=== PATIENT | female | born 1950 | race American Indian/Alaskan Native ===

== ENCOUNTER 2021-10-03 11:42 | Emergency (ER) | payer MEDICARE ==
[2021-10-03] MEDS ORDERED: SODIUM CHLORIDE 0.9% 1000 ML 1,000 ML IV ONE (12:38)
[2021-10-03] MEDS ORDERED: ONDANSETRON 4 MG/2 ML INJ IV ONE (12:38)
[2021-10-03] MEDS ORDERED: MORPHINE 4 MG/1 ML INJ IV ONE (12:38)
[2021-10-03 14:52] LABS: Basophils % (Auto) 0.3 % (0.0-1.8); Eosinophils % (Auto) 0.5 % (0.0-4.3); Hemoglobin 8.2 gm/dl (10.1-14.3); Lymphocytes # (Auto) 0.7 K/mm3 (1.2-5.4); Lymphocytes % (Auto) 7.5 % (13.4-35.0); Mean Corpuscular HGB Conc 34 % (30-34); Mean Corpuscular Volume 83 fl (79-97); Monocytes # (Auto) 0.9 K/mm3 (0.0-0.8); Monocytes % (Auto) 8.9 % (0.0-7.3); Platelet Count 291 K/mm3 (140-440); Red Blood Count 2.87 M/mm3 (3.65-5.03); Red Cell Distribution Width 18.5 % (13.2-15.2)
[2021-10-03 14:59] LABS: Alanine Aminotransferase 6 units/L (7-56); Albumin 2.9 g/dL (3.9-5); Blood Urea Nitrogen 33 mg/dL (7-17); Calcium 8.9 mg/dL (8.4-10.2); Hemolysis Index 5
[2021-10-03 15:24] LABS: BUN/Creatinine Ratio 5; Bilirubin,Direct < 0.2 mg/dL (0-0.2)
[2021-10-03 15:33] VITALS: BP 92/61
--- NOTE | 2021-10-03 19:34 | Cat Scan Report ---
CT ABDOMEN AND PELVIS WITHOUT CONTRAST INDICATION / CLINICAL INFORMATION: Abdominal pain. TECHNIQUE: Axial CT images were obtained through the abdomen and pelvis without IV contrast. All CT scans at this location are performed using CT dose reduction for ALARA by means of automated exposure control. COMPARISON: None available. FINDINGS: LOWER CHEST: There is a left pleural effusion. There is airspace consolidation in the left lung base. LIVER: No focal abnormality is seen. GALLBLADDER: Cholecystectomy. BILE DUCTS: No significant abnormality. PANCREAS: No discrete abnormality is identified. Surgical clips are noted in the left upper quadrant near the pancreatic tail. SPLEEN: No significant abnormality. ADRENALS: Not well seen on this study. RIGHT KIDNEY / URETER: The right kidney is atrophic. There are small hypodensities likely representin g cysts. 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 LEFT KIDNEY / URETER: The left kidney is atrophic. There is a large cyst in the upper pole. Atheroscl erotic calcifications are noted in both renal arteries. STOMACH / SMALL BOWEL: There is mild distention of small bowel loops in the midabdomen are predominan tly air-filled. These are nonspecific. COLON: No acute abnormality APPENDIX: Not visualized. PERITONEUM: There is a large amount of ascites. No free air. No fluid collection. There are some ques tionable soft tissue densities along the anterior peritoneum cannot determine if these are loops of b owel with the this could represent carcinomatosis. LYMPH NODES: No significant adenopathy. AORTA / ARTERIES: Severe atherosclerotic calcification without acute abnormality. IVC / VEINS: No significant abnormality. URINARY BLADDER: No significant abnormality. REPRODUCTIVE ORGANS: Uterus is absent. There are multiple surgical clips in the pelvis. ADDITIONAL FINDINGS: None. SKELETAL SYSTEM: There are multiple sclerotic foci noted in the imaged skeleton suspicious for metast asis. IMPRESSION: 1. There is a large amount of ascites. The source is not definitively identified. There are questiona ble soft tissue densities along the anterior peritoneal surface possibly representing carcinomatosis. This is not well-defined or definitive on this study. 2. There is atherosclerotic disease. 3. The kidneys are atrophic. There is a right renal artery aneurysm. 4. There is some distention of small bowel loops in the midabdomen specific. 5. There is a left pleural effusion. There is airspace consolidation in the left lung base. 6. There are multiple small sclerotic foci noted in the imaged skeleton suspicious for metastases. Signer Name: Ramirez Acevedo MD Signed: 10/03/2021 7:30 PM Workstation Name: [id number]
--- NOTE | 2021-10-03 20:08 | Emergency Department Report ---
ED Abdominal Pain HPI - General Chief Complaint: Abdominal Pain Stated Complaint: ABD PAIN Time Seen by Provider: 10/03/21 12:37 Source: patient, EMS Mode of arrival: Stretcher Limitations: No Limitations - History of Present Illness Initial Comments: Patient is a 70-year-old female with history of breast cancer and chronic kidney disease brought in from dialysis appointment with complaint of abdominal pain for the past week. She reports few episodes of nausea and vomiting. Denies any fever or chills. Reports history of diverticulitis which she thinks is the cause of her pain currently. Denies fever or chills. No modifying factors. Severity scale (0 -10): 4 - Related Data Previous Rx's Medication Instructions Recorded Last Taken Type HYDROcodone/APAP 5-325 [[place] 1 each PO Q6HR PRN #12 tablet 10/03/21 Unknown Rx 5/325] Allergies Allergy/AdvReac Type Severity Reaction Status Date / Time No Known Allergies Allergy Verified 10/03/21 11:51 ED Review of Systems ROS: Stated complaint: ABD PAIN Other details as noted in HPI Constitutional: denies: chills, fever Respiratory: denies: cough, shortness of breath, wheezing Cardiovascular: denies: chest pain, palpitations Gastrointestinal: abdominal pain, nausea, vomiting Genitourinary: denies: urgency, dysuria, discharge Skin: denies: rash, lesions Neurological: denies: headache, weakness, paresthesias Psychiatric: denies: anxiety, depression ED Past Medical Hx - Past Medical History Hx Hypertension: Yes Hx Renal Disease: Yes Hx of Cancer: Yes - Surgical History Past Surgical History?: Yes Additional Surgical History: masectomy 2013 - Social History Smoking Status: Never Smoker Substance Use Type: None - Medications Home Medications: Home Medications Medication Instructions Recorded Confirmed Last Taken Type HYDROcodone/APAP 5-325 [[place] 1 each PO Q6HR PRN #12 tablet 10/03/21 Unknown Rx 5/325] ED Physical Exam - General Limitations: No Limitations General appearance: alert, in no apparent distress - Head Head exam: Present: atraumatic, normocephalic - Respiratory Respiratory exam: Present: normal lung sounds bilaterally. Absent: respiratory distress - Cardiovascular Cardiovascular Exam: Present: regular rate, normal rhythm, normal heart sounds - GI/Abdominal GI/Abdominal exam: Present: soft, tenderness (Mild diffuse tenderness). Absent: distended, guarding, rebound - Rectal Rectal exam: Present: deferred - Neurological Exam Neurological exam: Present: alert, oriented X3 - Psychiatric Psychiatric exam: Present: normal affect, normal mood - Skin Skin exam: Present: warm, dry, intact, normal color ED Course Vital Signs 10/03/21 10/03/21 10/03/21 11:50 12:03 12:07 Temperature 98.6 F 97.8 F Pulse Rate 97 H 97 H 97 H Respiratory 18 22 18 Rate Blood Pressure 129/76 Blood Pressure 138/84 [Left] O2 Sat by Pulse 98 98 98 Oximetry 10/03/21 10/03/21 10/03/21 12:11 12:13 12:15 Temperature 97.8 F Pulse Rate 96 H 93 H Respiratory 18 18 24 Rate Blood Pressure 129/76 Blood Pressure 129/76 [Left] O2 Sat by Pulse 98 98 98 Oximetry 10/03/21 10/03/21 10/03/21 12:31 12:45 13:01 Temperature Pulse Rate 97 H 99 H 101 H Respiratory 19 21 17 Rate Blood Pressure 139/78 139/78 139/78 Blood Pressure [Left] O2 Sat by Pulse 98 98 98 Oximetry 10/03/21 10/03/21 10/03/21 13:15 13:31 13:45 Temperature Pulse Rate 100 H 100 H 100 H Respiratory 19 20 21 Rate Blood Pressure 139/78 139/78 142/68 Blood Pressure [Left] O2 Sat by Pulse 97 97 98 Oximetry 10/03/21 10/03/21 10/03/21 14:01 14:15 14:31 Temperature Pulse Rate 101 H 100 H 97 H Respiratory 10 L 24 21 Rate Blood Pressure 132/75 92/61 92/61 Blood Pressure [Left] O2 Sat by Pulse 98 95 98 Oximetry 10/03/21 10/03/21 10/03/21 14:45 15:01 15:15 Temperature Pulse Rate 102 H 103 H 99 H Respiratory 19 17 22 Rate Blood Pressure 92/61 92/61 92/61 Blood Pressure [Left] O2 Sat by Pulse 98 98 97 Oximetry 10/03/21 10/03/21 10/03/21 15:31 15:45 16:01 Temperature Pulse Rate 98 H 99 H 100 H Respiratory 21 18 20 Rate Blood Pressure 92/61 92/61 92/61 Blood Pressure [Left] O2 Sat by Pulse 98 98 99 Oximetry 10/03/21 10/03/21 10/03/21 16:15 16:31 16:45 Temperature Pulse Rate 100 H 103 H 104 H Respiratory 14 16 13 Rate Blood Pressure 92/61 92/61 92/61 Blood Pressure [Left] O2 Sat by Pulse 97 98 98 Oximetry 10/03/21 10/03/21 10/03/21 17:01 17:15 17:31 Temperature Pulse Rate 106 H 106 H 106 H Respiratory 15 16 16 Rate Blood Pressure 92/61 92/61 92/61 Blood Pressure [Left] O2 Sat by Pulse 98 97 98 Oximetry 10/03/21 10/03/21 10/03/21 17:45 18:01 18:15 Temperature Pulse Rate 107 H 106 H 107 H Respiratory 16 15 14 Rate Blood Pressure 92/61 92/61 92/61 Blood Pressure [Left] O2 Sat by Pulse 96 97 97 Oximetry ED Medical Decision Making - Lab Data Result diagrams: 10/03/21 14:26 10/03/21 14:26 - Medical Decision Making Chemistry grossly unremarkable except for chronically elevated creatinine and BUN. CBC shows mild anemia not requiring emergent transfusion. WBC count normal. CT of the abdomen reveals large amount of ascites possibly representing carcinomatosis, atrophic kidneys, right renal artery aneurysm, mild distention of small bowel loops in the mid abdomen, left pleural effusion and multiple small foci noted in the image skeleton suspicious for metastases. Patient given IV fluids, morphine and Zofran. On reassessment patient appears more comfortable. I discussed the results with her. She states that she has an upcoming follow-up appointment with her oncologist. Will discharge home with Rx for [place] to take as needed for breakthrough pain. Critical care attestation.: If time is entered above; I have spent that time in minutes in the direct care of this critically ill patient, excluding procedure time. ED Disposition Clinical Impression: Abdominal ascites, Bone metastases, Abdominal pain, generalized Disposition: 01 HOME / SELF CARE / HOMELESS Is pt being admited?: No Condition: Stable Instructions: Abdominal Pain (ED), Abdominal Pain, Adult, [id number], Bone Metastasis Additional Instructions: Please follow-up with your oncologist as scheduled. You may return if your symptoms worsen.
== END 2021-10-03 21:42 | disposition home or self-care (01) ==
LOC: ED 11:42
DX: R10.84 Generalized abdominal pain (principal); R18.8 Other ascites; C79.51 Secondary malignant neoplasm of bone; I12.9 Hypertensive chronic kidney disease with stage 1 through stage 4 chronic kidney disease, or unspecified chronic kidney disease; N18.9 Chronic kidney disease, unspecified; Z85.9 Personal history of malignant neoplasm, unspecified; Z98.890 Other specified postprocedural states
CPT/HCPCS: 36415; 74176; 80048; 80076; 83690; 85025; 96361; 96374; 96375; 99284; J2270; J2405; J7030